=== PATIENT | male | born 1965 | race Caucasian/White ===

== ENCOUNTER 2018-01-02 09:34 | Outpatient (CLI) | payer OTHER, SELFPAY | END 2018-01-02 10:49 | disposition home or self-care (01) | PROVIDERS: PCP Family Medicine; Visit Provider Nurse Practitioner Family | DX: Z02.4 Encounter for examination for driving license (principal) ==

== ENCOUNTER 2022-03-08 10:09 | Emergency (ER) | payer BC, SELFPAY ==
[2022-03-08 10:10] VITALS: BP 130/77; PULSE 74; RESP 18; TEMP 36.7; O2SAT 97; BMI 38.9
--- NOTE | 2022-03-08 10:15 | PC.NURSE ---
PT PLACED IN GOWN AND WARM BLANKET PROVIDED
--- NOTE | 2022-03-08 10:22 | PC.NURSE ---
ED MD AT BEDSIDE FOR EVALUATION
--- NOTE | 2022-03-08 10:33 | HMH.EDWNDL ---
Discharge Plan Disposition Patient Disposition: Home, Self-Care Condition: Good Prescriptions Prescriptions: New sulfamethoxazole-trimethoprim [Bactrim] 400-80 mg tablet 1 tab PO BID 10 Days Qty: 20 0RF Referrals Follow up/Referrals: Catrachita Wiley [Primary Care Provider] - See instructions Clinical Impressions Clinical Impression: Cellulitis Stand Alone Forms Stand Alone Forms: Work/School Release Instructions Patient Instructions: Cellulitis, Trimethoprim/Sulfamethoxazole (Alternative Therapy) Print Language Print Language: Arabic Discharge ED Provider: Abhijeet Mayfield Wound/Laceration HPI General Chief Complaint: Wound/Laceration Stated Complaint: possibly infected wound on left leg Time Seen by Provider: 03/08/22 10:34 Mode of Arrival: Ambulatory Limitations: No Limitations Description of Symptoms (Recalled from ER Triage Doc. by RN): PT REPORTS RED, PAINFUL AREA TO LEFT GROIN SINCE LAST TUESDAY. CURRENTLY TAKING KEFLEX FROM PCP History of Present Illness HPI narrative: 56-year-old male, past medical history of type 2 diabetes, controlled by medication, presents with red, painful area of left groin, initial onset last Tuesday. He states he started taking Keflex written by his PCP on Tuesday, up to that point had had redness extending midway down the left thigh however that has improved significantly. He has noticed worsening induration and 2 small areas of drainage which she is try to express and had small amount of purulent discharge. There is no extension into the scrotum or perineal area, is isolated to the proximal left thigh in the groin fold. He denies any fevers, chills, nausea, vomiting, has not sought any other medical care or tried any other treatments other than what was mentioned previously. Related Data Previous Rx's Medication Instructions Recorded sulfamethoxazole 400 1 tab PO BID 10 days #20 tabs 03/08/22 mg-trimethoprim 80 mg tablet (Bactrim) Allergies Allergy/AdvReac Type Severity Reaction Status Date / Time Penicillins Allergy Verified 03/08/22 10:35 [facility] Medical History Diabetes GERD (gastroesophageal reflux disease) Hyperlipemia Hypertension Surgical History Hx of tonsillectomy Family History Other No significant family history Social History Smoking Status: Never smoker alcohol intake: never current occupational status: employed Travel in the last 8 weeks: None ROS Obtained: Yes Systems reviewed as appropriate & no additional complaints except as documented Constitutional Constitutional: Reports system reviewed and no additional complaints, except as documented Eyes Eyes: Reports system reviewed and no additional complaints, except as documented ENT Ears, Nose, Mouth, and Throat: Reports system reviewed and no additional complaints, except as documented Cardiovascular Cardiovascular: Reports system reviewed and no additional complaints, except as documented Respiratory Respiratory: Reports system reviewed and no additional complaints, except as documented Gastrointestinal Gastrointestingal: Reports system reviewed and no additional complaints, except as documented Genitourinary Male Genitourinary: Reports system reviewed and no additional complaints, except as documented Musculoskeletal Musculoskeletal: Reports system reviewed and no additional complaints, except as documented Integumentary/Breasts Skin/Breast: Reports as per HPI Neurologic Neurologic: Reports system reviewed and no additional complaints, except as documented Endocrine Endocrine: Reports system reviewed and no additional complaints, except as documented Hematologic/Lymphatic Henatologic/Lymphatic: Reports system reviewed and no additional complaints, exc
[2022-03-08 10:48] VITALS: BP 131/78; PULSE 87; RESP 17; TEMP 36.7; O2SAT 97
== END 2022-03-08 10:49 | disposition home or self-care (01) ==
PROVIDERS: Emergency Provider Emergency Medicine; PCP Family Medicine
DX: L03.314 Cellulitis of groin (principal); E11.9 Type 2 diabetes mellitus without complications